=== PATIENT | male | born 1990 | race Two or more races ===

== ENCOUNTER 2019-06-21 22:40 | Emergency (ER) | payer OTHER ==
[2019-06-21 22:48] VITALS: BP 108/73; PULSE 69; TEMP 98; BMI 29.0
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
[2019-06-21] MEDS ORDERED: ACETAMINOPHEN 500 MG TABLET (FP) PO ONE (23:54)
[2019-06-22] MEDS ORDERED: BACITRACIN 0.9 GM PACKET TP ONE (00:20)
[2019-06-22] MEDS ORDERED: BACITRACIN 0.9 GM PACKET ONE (00:49)
[2019-06-22] MEDS ORDERED: ACETAMINOPHEN 325 MG TABLET (FP) ONE (00:49)
== END 2019-06-22 01:52 | disposition home or self-care (01) ==
LOC: JER 22:40
DX: S00.81XA Abrasion of other part of head, initial encounter (principal); M54.2 Cervicalgia; V43.52XA Car driver injured in collision with other type car in traffic accident, initial encounter; Y92.414 Local residential or business street as the place of occurrence of the external cause; Y93.89 Activity, other specified; Y99.8 Other external cause status
CPT/HCPCS: 70450-TC; 72125-TC; 99282-25

== ENCOUNTER 2020-09-21 11:32 | Emergency (ER) | payer OTHER | END 2020-09-21 12:26 | disposition home or self-care (01) | LOC: JVIRT 11:32 | DX: M54.5 Low back pain (principal); Z20.822 Contact with and (suspected) exposure to COVID-19 | CPT/HCPCS: C9803; G2012-GT; U0003 ==

== ENCOUNTER 2021-05-13 00:31 | Emergency (ER) | payer OTHER ==
[2021-05-13 00:37] VITALS: BP 112/74; PULSE 87; TEMP 98.4; BMI 26.4
== END 2021-05-13 02:53 | disposition home or self-care (01) ==
LOC: JER 00:31
DX: T40.2X1A Poisoning by other opioids, accidental (unintentional), initial encounter (principal)
CPT/HCPCS: 99283-25